=== PATIENT | male | born 1965 | race Caucasian/White ===

== ENCOUNTER 2020-05-28 10:44 | Inpatient (IN) | payer OTHER ==
[~2020-05-28] VITALS: Ht 177.8 cm; Wt 119.7 kg
[2020-05-28 11:04] VITALS: BP 114/67
[2020-05-28] MEDS ORDERED: SIMVASTATIN80 MG PO (11:07)
[2020-05-28] MEDS ORDERED: FAMOTIDINE 20 M20 MG PO (11:08)
[2020-05-28] MEDS ORDERED: HYDROCHLOROTHIA25 M2 PO (11:08)
[2020-05-28] MEDS ORDERED: CARVEDILOL12.5 MG PO (11:08)
[2020-05-28] MEDS ORDERED: LISINOPRIL2.5 MG PO (11:08)
[2020-05-28] MEDS ORDERED: FISH OIL 1,0001 EAC9 PO (11:08)
[2020-05-28] MEDS ORDERED: SUPER THERAVIT1 EACH PO (11:09)
[2020-05-28 11:47] LABS: ABSOLUTE LYMPHOCYTES 0.6 thou/uL (0.8-5.3); ABSOLUTE MONOCYTES 0.2 thou/uL (0.0-1.2); ABSOLUTE NEUTROPHILS 3.7 thou/uL (1.6-8.1); BASOPHILS 0.2 %; HEMOGLOBIN 13.6 gm/dL (14.0-18.0); LYMPHOCYTES 12.7 %; MCH 29.2 pg (26.0-34.0); MCV 83.3 fL (80.0-100.0); MONOCYTES 4.7 %; NUCLEATED RBCS 0 /100WBC; PLATELET COUNT* 166 thou/uL (150-400); POLYS 82.4 %; RBC 4.68 mil/uL (4.50-6.00); RDW-CV 14.1 % (10.5-14.5); WBC 4.4 thou/uL (4.0-11.0)
[2020-05-28 11:54] LABS: INR 1.1; PROTIME 10.9 Seconds (9.20-11.50)
[2020-05-28 12:06] LABS: CALCIUM 8.3 mg/dL (8.5-10.1); CREATININE 1.6 mg/dL (0.6-1.3); POTASSIUM 3.2 mmol/L (3.5-5.1)
[2020-05-28 12:12] LABS: ALBUMIN 3.5 g/dL (3.4-5.0); TOTAL BILIRUBIN 0.6 mg/dL (<0.1-1.0); TOTAL PROTEIN 7.1 g/dL (6.4-8.2)
[2020-05-28 15:31] VITALS: BP 98/44
--- NOTE | 2020-05-28 17:14 | NUR ---
PATIENT ARRIVED THIS AFTERNOON FROM THE ER PER CART. PATIENT IS ALERT AND ORIENTED 4. HE DENIES PAIN AND SOA ON ARRIVAL. PATIENT IS AFEBRILE. PATIENTPLACED ON TELE MONITOR. ORIENTED TO ROOM, CALL LIGHT PROCEDURES, FALL PRECAUTIONS AND CLUSTER CARE. PATIENT PLACED IN ISOLATION FOR COVID PRECAUTIONS. TELE SHOWS NSR. VSS AT THIS TIME. IV FLUIDS INFUSING.
--- NOTE | 2020-05-28 17:38 | EKG ---
[place] [address] ELECTROCARDIOGRAM REPORT Name: ANDREAS BECKMAN Room: [address] [place] ..#: [id number] Admission: 05/28/20 Attend Phys: Jacob Robledo, Discharge: Date of : 65 Date of Service: 05/28/20 1205 Report #: [id number] THIS REPORT FOR: //name// [facility] ED Test Date: 2020-05-28 Test Time: 12:05:46 Pat Name: ANDREAS BECKMAN Department: Room: [facility] Gender: M [employer] Dispatcher: : [id number] Requested By: Gabriel Chery Order Number: [id number] MD: Fabrizio Vu Measurements Intervals [place] Rate: 74 P: 36 AL: 153 QRS: 25 QRSD: 109 T: 40 QT: 383 QTc: 425 Interpretive Statements Sinus rhythm RSR' in V1 or V2, probably normal variant No previous ECG available for comparison Electronically Signed On 05-28-2020 17:38:35 CDT by Fabrizio Vu [email or web address] <ELECTRONICALLY SIGNED> By: Fabrizio Vu MD, FACC 05/28/20 1738 1205 1205 Fabrizio Vu MD, FAC /EPI
[2020-05-28 20:20] VITALS: BP 107/70
[2020-05-29] VITALS: BP 112/79
[2020-05-29 04:15] VITALS: BP 106/66
--- NOTE | 2020-05-29 05:34 | NUR ---
PT CARE ASSUMED AT 1930. SAT MAINTAINED IN RA. DENIES SOB, N/V. CALL LIGHT WITHIN REACH AND BED IN LOW POSITION. PT AFEBRILE WHOLE NIGHT. HOURLY ROUNDING DONE FOR PT SAFETY.
[2020-05-29 08:00] VITALS: BP 98/50
[2020-05-29 09:49] LABS: HEMATOCRIT 39.3 % (42.0-52.0); HEMOGLOBIN 13.5 gm/dL (14.0-18.0); MCH 29.3 pg (26.0-34.0); MCHC 34.3 g/dL (28.0-37.0); MCV 85.6 fL (80.0-100.0); MPV 9.3 fl. (7.2-11.1); RBC 4.6 mil/uL (4.50-6.00); WBC 5.6 thou/uL (4.0-11.0)
[2020-05-29 10:01] LABS: CALCIUM 8.3 mg/dL (8.5-10.1); CREATININE 1.2 mg/dL (0.6-1.3); POTASSIUM 3.7 mmol/L (3.5-5.1)
[2020-05-29 10:05] LABS: ALBUMIN 3.1 g/dL (3.4-5.0); MAGNESIUM 2.2 mg/dL (1.8-2.4); TOTAL BILIRUBIN 0.4 mg/dL (<0.1-1.0); TOTAL PROTEIN 6.6 g/dL (6.4-8.2)
--- NOTE | 2020-05-29 10:27 | NUR ---
CM SPOKE TO THE PT TO COMPLETE ASSESSMENT, AND TO DISCUSS DISCHARGE PLANNING NEEDS. PT A&O, INDEPENDENT AND ACTIVE, AND WORKS. PT RESIDES AT HOME WITH SPOUSE. PT OWNS 0 DME. PT HAS 0 HX OF HH OR SNF. D/C PLANNING NEEDS FOR THIS PT TBD AT THIS TIME. CM WILL REMAIN AVAILABLE TO ASSIST AND FOLLOW NEEDED.
[2020-05-29 12:00] VITALS: BP 107/68
[2020-05-29 16:00] VITALS: BP 112/65
--- NOTE | 2020-05-29 18:51 | NUR ---
PT. AOX4, VSS, DENIES PAIN, IVF D/ELIZABETH, UP AD PRESTON TO CHAIR. RESPIRATORY SYMMPTOMS IMPLOVING PER PATIENT, DIET ADVANCED AND TOLERATING WELL. CALL LIGHT AND PERSONAL BELONGINGS PLACED WITHIN REACH. PT. IN CHAIR, WATCHING TV, IN NO APPARENT DISTRESS, AT TIME OF SHIFT CHANGE.
[2020-05-29 20:00] VITALS: BP 118/77
[2020-05-30] VITALS: BP 116/65
[2020-05-30 04:00] VITALS: BP 115/57
--- NOTE | 2020-05-30 05:16 | NUR ---
ASSUMED CARE OF PT AFTER REPORT AT 1930. PT A&OX4. VSS. PHYSICAL ASSESSMENT COMPLETED AND CHARTED. PT ON RA. PT TRACING SR ON TELE. PT UPADLIB TO RESTROOM. NO EPISODE OF NAUSEA. PT COMPLAINED OF PERSISTENT COUGH-MED GIVEN PER JAN. CALL LIGHT WITHIN REACH.
[2020-05-30 05:18] LABS: ALBUMIN 3.1 g/dL (3.4-5.0); CALCIUM 8.1 mg/dL (8.5-10.1); CREATININE 1.2 mg/dL (0.6-1.3); POTASSIUM 3.9 mmol/L (3.5-5.1); TOTAL BILIRUBIN 0.4 mg/dL (<0.1-1.0); TOTAL PROTEIN 5.8 g/dL (6.4-8.2)
[2020-05-30 05:20] LABS: HEMATOCRIT 35.2 % (42.0-52.0); HEMOGLOBIN 12.4 gm/dL (14.0-18.0); MCH 29.7 pg (26.0-34.0); MCHC 35.3 g/dL (28.0-37.0); MCV 84.1 fL (80.0-100.0); MPV 9.7 fl. (7.2-11.1); RBC 4.19 mil/uL (4.50-6.00); RDW-CV 13.9 % (10.5-14.5); WBC 11.5 thou/uL (4.0-11.0)
[2020-05-30 08:00] VITALS: BP 117/66
[2020-05-30] MEDS ORDERED: TUSSIN100 MG/5 M PO (12:08)
[2020-05-30] MEDS ORDERED: LEVAQUIN 500 M500 M3 PO (12:08)
[2020-05-30] MEDS ORDERED: DEXAMETHASONE 22 M1 PO (12:08)
[2020-05-30] MEDS ORDERED: PROTONIX40 M1 PO (12:08)
[2020-05-30 13:36] VITALS: BP 117/66
--- NOTE | 2020-05-30 14:07 | NUR ---
VS CHARTED, A&OX4, ROOM AIR, SR ON TELE, UP AD PRESTON, COVID +, HOURLY ROUNDING PERFORMED, POSSESSIONS AND CALL LIGHT WITHIN REACH, REC DISCHARGE ORDERS, REVIEWED WITH PATIENT, SCRIPTS AND CARE NOTES GIVEN, WORK EXCUSE PROVIDED BY DR ORR, TELE MONITOR AND IV REMOVED WITHOUT COMPLICATION, PATIENT TAKES IN WC TO ED EXIT BY NURSING STAFF, PICKED UP BY SPOUSE IN FAMILY CAR
== END 2020-05-30 14:10 | disposition home or self-care (01) | DRG 871 ==
LOC: M.ERS 10:44 → M.TBA-ER 13:02 → M.2W 13:02
PROVIDERS: Family Medicine; ADMIT Internal Medicine; ATTEND Internal Medicine
DX: A41.89 Other specified sepsis (principal); U07.1 COVID-19; N17.0 Acute kidney failure with tubular necrosis; J12.89 Other viral pneumonia; E86.0 Dehydration; E66.9 Obesity, unspecified; A08.4 Viral intestinal infection, unspecified; E87.6 Hypokalemia; B34.9 Viral infection, unspecified; R79.89 Other specified abnormal findings of blood chemistry; I95.2 Hypotension due to drugs; I10 Essential (primary) hypertension; E78.5 Hyperlipidemia, unspecified; Z79.899 Other long term (current) drug therapy; Z88.1 Allergy status to other antibiotic agents; Z68.37 Body mass index [BMI] 37.0-37.9, adult